=== PATIENT | female | born 1970 | race Caucasian/White ===

== ENCOUNTER 2020-09-08 02:09 | Emergency (ER) | payer MEDICAID ==
[~2020-09-08] VITALS: Ht 170.2 cm; Wt 94.8 kg
[2020-09-08 02:19] VITALS: Ht 170.2 cm; Wt 94.8 kg
[2020-09-08 03:58] LABS: BASOPHIL % 0.2 % (0.2-1.3); PLATELET COUNT 234 x10^3mcL (179-408)
[2020-09-08 03:59] LABS: RED CELL DISTRIBUTION WIDTH 14.9 % (12.3-17.7)
[2020-09-08 04:22] LABS: rbc morphology (normal/abnorm) NORMAL (NORMAL)
[2020-09-08 04:48] LABS: CALCIUM 9.2 mg/dL (8.5-10.1); CARBON DIOXIDE 28.2 mmol/L (21-32); CHLORIDE SERUM 103 mmol/L (98-107); CREATININE SERUM 0.9 mg/dL (0.6-1.0); GFR1 > 60 mL/min; GLUCOSE SERUM 156 mg/dL (74-106); SODIUM SERUM 138 mmol/L (136-145)
[2020-09-08 04:52] LABS: ALBUMIN 3.7 g/dL (3.4-5.0); ALKALINE PHOSPHATASE 98 U/L (46-116); ALT/SGPT 60 U/L (14-59); AST/SGOT 70 U/L (15-37); BILIRUBIN TOTAL 0.8 mg/dL (0.20-1.00); LIPASE 95 IU/L (73-393)
[2020-09-08 07:54] VITALS: BP 107/63
== END 2020-09-08 12:05 | disposition home or self-care (01) ==
LOC: ED 02:09
PROVIDERS: Emergency Medicine
DX: K80.50 Calculus of bile duct without cholangitis or cholecystitis without obstruction (principal); K83.8 Other specified diseases of biliary tract
CPT/HCPCS: J1170